=== PATIENT | male | born 2005 | race Caucasian/White ===

== ENCOUNTER 2025-07-11 10:40 | Emergency (ER) | payer BC, OTHER ==
[~2025-07-11] VITALS: Ht 188 cm; Wt 81.4 kg
[2025-07-11 10:43] VITALS: BP 127/81; PULSE 63; RESP 16; O2SAT 99
--- NOTE | 2025-07-11 11:28 | Physician Documentation ---
History of Present Illness ~ Chief Complaint: Headache Stated Complaint: POSS CONCUSSION Time Seen by MD: 11:12 [facility] 19-year-old male concerned for concussion like symptoms after he started going to boxing classes after work. Patient states he just has noticed a more diffi cult time with concentrating and forgetfulness patient did not lose consciousness at any point during his boxing classes. Patient denies any dizziness, nausea, vomiting. Medication Reconciliation Allergies: Coded Allergies: No Known Allergies (Unverified , 07/11/25) Past Medical History Past Medical History: No Pertinent History Review of Systems All Other Systems at this time: Reviewed and Negative Neurological: Reports: see [facility] Physical Exam Vital Signs: RN Vital Signs have been reviewed: Yes, Temperature: 98.4, Source: Temporal, Heart Rate: 63, Respiratory Rate: 16, BP: 127/81, Pulse Oximetry: 99, Weight: 81.360 Oxygen Flow Rate: 0 Physical Exam General: Alert, no apparent distress. HEENT: PERRL, EOMI, no injection, moist mucous membranes. Negative [id number] no nystagmus Neck: Full range of motion. Respiratory: Lungs clear, no respiratory distress. Chest: No accessory muscle use. Cardiovascular: Regular rate and rhythm, no murmurs. Extremities: Normal range of motion, no deformity. 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 Pronator drift negative hints Psychiatric: Normal mood and affect. Skin: Normal color, warm and dry. No edema, no ecchymosis. Progress Results/Orders Results/Orders Vital Signs 07/11/25 10:43 Temp 98.4 Pulse 63 Resp 16 B/P (MAP) 127/81 Pulse Ox 99 O2 Flow Rate 0 Medical Decision Making Findings Discussed boxing forgetfulness and concentration that is been going on for a couple of days patient states that he just has a more difficult time remembering things. Patient denies loss of consciousness dizziness headache patient changes. Discussed concussion like symptoms patient to have concussion precaution monitor and follow up with primary care next week Departure Time of Disposition: 11:27 Disposition: 01 HOME / SELF CARE / HOMELESS Impression: Primary Impression: Concussion without loss of consciousness Condition: Stable Discharge Instructions: Contusion (Bruise), Post Concussion Syndrome,Adult Additional Instructions: Rest and stay well hydrated follow up with primary care Referrals: NO PRIMARY CARE PROVIDER (PCP) Education Educated: Patient Educated regarding: diagnosis, treatment, need for follow up Signature Scribe Signature: No scribe Attestation: The note accurately reflects work and decisions made by me.Carine JOE 07/11/25 11:27 CARINE MELENDREZ NP Jul 11, 2025 11:28
[2025-07-11 11:34] VITALS: TEMP 98.4
== END 2025-07-11 11:35 | disposition home or self-care (01) ==
LOC: ER 10:41
DX: S06.0X0A Concussion without loss of consciousness, initial encounter (principal); X58.XXXA Exposure to other specified factors, initial encounter; Y93.71 Activity, boxing; Y92.89 Other specified places as the place of occurrence of the external cause; Y99.8 Other external cause status
CPT/HCPCS: 99284